=== PATIENT | female | born 1965 ===

== ENCOUNTER → 2019-01-03 | Outpatient (CLI) | payer OTHER ==
[~2019-01-03] MED LIST: IBUP800T37 PO; TRAM-420 PO
[2019-01-03 14:37] LABS: PLATELET COUNT, AUTOMATED 229 K/uL (150-450)
== END ==
LOC: LAB 14:03
PROVIDERS: ATTEND Emergency Medicine
DX: M25.561 Pain in right knee (principal); M25.562 Pain in left knee
CPT/HCPCS: 36415; 82040; 82247; 82310; 82374; 82435; 82465; 82565; 82947; 83718; 84075; 84132; 84155; 84295; 84443; 84450; 84460; 84478; 84520; 85025